=== PATIENT | female | born 1985 | race Caucasian/White ===

== ENCOUNTER 2022-07-23 18:26 | Emergency (ER) | payer OTHER ==
[~2022-07-23 18:26] MED LIST: NAPROSYN500 MG PO
== END 2022-07-23 22:45 | disposition home or self-care (01) ==
LOC: ER1 18:26
DX: M79.671 Pain in right foot (principal); M25.571 Pain in right ankle and joints of right foot; F17.210 Nicotine dependence, cigarettes, uncomplicated; R40.2410 Glasgow coma scale score 13-15, unspecified time; Z90.49 Acquired absence of other specified parts of digestive tract; Z88.8 Allergy status to other drugs, medicaments and biological substances; W10.9XXA Fall (on) (from) unspecified stairs and steps, initial encounter
CPT/HCPCS: 73610; 73630; 99283